=== PATIENT | female | born 1955 | race Caucasian/White ===

== ENCOUNTER 2020-06-13 09:53 | Day surgery (SDC) | payer BC, MEDICARE ==
[2020-06-10 14:02] VITALS: BMI 27.8
[2020-06-13] MEDS ORDERED: PROPOFOL 20 ML ONE ×2 (11:11)
[2020-06-13] MEDS ORDERED: Lidocaine 2% MPF 10 ML AMP (For Epidural Use) ONE (11:11)
[2020-06-13] MEDS ORDERED: PHENYLEPHRINE-NS 100 MCG/ML 10 ML SYRINGE ONE (12:22)
== END 2020-06-13 13:40 | disposition home or self-care (01) ==
LOC: CSHSDC 09:53
PROVIDERS: ATTEND Internal Medicine Gastroenterology
PROC: 0DJD8ZZ Inspection of Lower Intestinal Tract, Via Natural or Artificial Opening Endoscopic (ICD-10-PCS; principal; 2020-06-13)
DX: Z12.11 Encounter for screening for malignant neoplasm of colon (principal); K21.9 Gastro-esophageal reflux disease without esophagitis; K21.00 Gastro-esophageal reflux disease with esophagitis, without bleeding; K44.9 Diaphragmatic hernia without obstruction or gangrene; K22.10 Ulcer of esophagus without bleeding; K57.30 Diverticulosis of large intestine without perforation or abscess without bleeding; K64.9 Unspecified hemorrhoids
CPT/HCPCS: 88305; J2001; J2704

== ENCOUNTER 2021-07-25 12:13 | Outpatient (CLI) | payer MEDICARE, BC | END 2021-07-25 12:14 | disposition home or self-care (01) | LOC: CSHULT 12:13 | PROVIDERS: ATTEND Internal Medicine Rheumatology | DX: N18.32 Chronic kidney disease, stage 3b (principal); N27.1 Small kidney, bilateral | CPT/HCPCS: 76770 ==

== ENCOUNTER 2023-02-01 13:02 | Outpatient (CLI) | payer MEDICARE, BC | END 2023-02-01 13:03 | disposition home or self-care (01) | LOC: CSHLAB 13:02 | PROVIDERS: ATTEND Obstetrics & Gynecology | DX: Z01.818 Encounter for other preprocedural examination (principal); N87.9 Dysplasia of cervix uteri, unspecified | CPT/HCPCS: 80048; 85027; 86850; 86900; 86901; 93005; 93010 ==

== ENCOUNTER 2023-02-05 07:53 | Day surgery (SDC) | payer MEDICARE, BC ==
[2023-02-01 14:02] VITALS: BMI 24.4
[2023-02-01 14:38] LABS: Hematocrit 39.6 % (34.9-44.5); Hemoglobin 13.2 g/dL (12.0-15.5); Mean Corpuscular HGB CONC 33.3 g/dL (32.0-36.0); Mean Corpuscular Volume 102.1 fl (81.6-98.3); Platelet Count 303 10x3/uL (150-450); RBC Distribution Width 13.7 % (11.5-14.5); Red Blood Cell (RBC) Count 3.88 10x6/uL (3.90-5.03); White Blood Cell (WBC) Count 9.9 10x3/uL (3.5-10.5)
[2023-02-01 14:59] LABS: Anion Gap 18 mmol/L (10-20); BUN (Urea Nitrogen) 18 mg/dL (9.8-20.1); Calc. Creatinine Clearance 0 mL/min (70-130); Calcium 9.6 mg/dL (7.8-10.44); Carbon Dioxide 21 mmol/L (23-31); Chloride 109 mmol/L (98-107); Estimated GFR 52; Glucose 86 mg/dL (80-115); Potassium 3.6 mmol/L (3.5-5.1); Sodium 144 mmol/L (136-145)
[2023-02-05] MEDS ORDERED: Gabapentin 300 MG CAP ONE (08:02)
[2023-02-05] MEDS ORDERED: Famotidine/PF 20 mg/2ml Vial ONE (08:03)
[2023-02-05] MEDS ORDERED: CeleCOXIB 100 MG CAP ONE (08:04)
[2023-02-05] MEDS ORDERED: Bupivacaine PF 0.5% 30 ML VIAL ONE (09:08)
[2023-02-05] MEDS ORDERED: EPINEPHrine 1 MG/ML VIAL ONE (09:08)
[2023-02-05] MEDS ORDERED: Rocuronium Bromide 10 MG/ML (10ML VIAL) ONE (09:12)
[2023-02-05] MEDS ORDERED: Fentanyl 250 MCG/5 ML VIAL ONE (09:12)
[2023-02-05] MEDS ORDERED: Ondansetron PF 4 MG/2 ML Vial ONE (09:12)
[2023-02-05] MEDS ORDERED: Dexamethasone 20 MG/5 ML VIAL ONE (09:12)
[2023-02-05] MEDS ORDERED: Ketorolac Tromethamine 30 MG/ML VIAL ONE (09:12)
[2023-02-05] MEDS ORDERED: Midazolam HCl 2 mg/2 ml Vial ONE (09:12)
[2023-02-05] MEDS ORDERED: Lidocaine 1% PF 5 ML VIAL ONE (09:12)
[2023-02-05] MEDS ORDERED: PROPOFOL 20 ML ONE (09:12)
[2023-02-05] MEDS ORDERED: CEFAZOLIN 2 GM VIAL ONE (09:35)
[2023-02-05] MEDS ORDERED: Hydrocortisone Sod Succ/PF 100 mg/2 ml Vial ONE (10:27)
== END 2023-02-05 15:30 | disposition home or self-care (01) ==
LOC: CSHSDC 07:53
PROVIDERS: ATTEND Obstetrics & Gynecology
PROC: 0UT94ZZ Resection of Uterus, Percutaneous Endoscopic Approach (ICD-10-PCS; principal; 2023-02-05)
PROC: 0UB74ZZ Excision of Bilateral Fallopian Tubes, Percutaneous Endoscopic Approach (ICD-10-PCS; 2023-02-05)
PROC: 0UB24ZZ Excision of Bilateral Ovaries, Percutaneous Endoscopic Approach (ICD-10-PCS; 2023-02-05)
DX: N85.8 Other specified noninflammatory disorders of uterus (principal); N83.312 Acquired atrophy of left ovary; N83.311 Acquired atrophy of right ovary; N73.6 Female pelvic peritoneal adhesions (postinfective); R87.810 Cervical high risk human papillomavirus (HPV) DNA test positive; I11.0 Hypertensive heart disease with heart failure; I50.20 Unspecified systolic (congestive) heart failure; E78.5 Hyperlipidemia, unspecified; F17.210 Nicotine dependence, cigarettes, uncomplicated; Z87.410 Personal history of cervical dysplasia; Z90.49 Acquired absence of other specified parts of digestive tract; Z90.89 Acquired absence of other organs; Z79.899 Other long term (current) drug therapy
CPT/HCPCS: 58571; 80048; 85027; 86850; 86900; 86901; J0171; 36415; 88307; C1776; C1889; J1100; J1720; J1885; J2250; J2405; J2704; J3010; S0020; S0028

== ENCOUNTER 2023-08-14 13:59 | Outpatient (CLI) | payer MEDICARE, BC | END 2023-08-14 14:00 | disposition home or self-care (01) | LOC: CSHCT 13:59 | PROVIDERS: ATTEND Family Medicine | DX: Z12.2 Encounter for screening for malignant neoplasm of respiratory organs (principal); F17.210 Nicotine dependence, cigarettes, uncomplicated; K44.9 Diaphragmatic hernia without obstruction or gangrene | CPT/HCPCS: 71271 ==

== ENCOUNTER 2024-03-31 14:23 | Outpatient (CLI) | payer MEDICARE, BC | END 2024-03-31 14:24 | disposition home or self-care (01) | LOC: CSHRAD 14:23 | PROVIDERS: ATTEND Internal Medicine Rheumatology | DX: M47.817 Spondylosis without myelopathy or radiculopathy, lumbosacral region (principal); M81.0 Age-related osteoporosis without current pathological fracture | CPT/HCPCS: 72072; 72100 ==

== ENCOUNTER 2024-07-16 05:54 | Day surgery (SDC) | payer MEDICARE, BC ==
[2024-07-13 12:05] VITALS: BMI 17.6
[2024-07-16] MEDS ORDERED: Ketorolac Tromethamine 30 MG (1 mL) VIAL ONE (07:39)
[2024-07-16] MEDS ORDERED: Acetaminophen 500 MG TAB ONE (07:39)
[2024-07-16] MEDS ORDERED: Bupivacaine/Epinephrine 0.25% 30 ML VIAL ONE (07:54)
[2024-07-16] MEDS ORDERED: PROPOFOL 20 ML ONE (08:00)
[2024-07-16] MEDS ORDERED: CEFAZOLIN 1 GM VIAL ONE (08:08)
[2024-07-16] MEDS ORDERED: Fentanyl 100 MCG/2 ML VIAL ONE (08:21)
[2024-07-16] MEDS ORDERED: Dexamethasone 4 mg/ml Vial ONE (08:23)
[2024-07-16] MEDS ORDERED: Ondansetron PF 4 MG/2 ML Vial ONE (08:23)
[2024-07-16] MEDS ORDERED: Sevoflurane 250 ML INH ANEST BOTTLE ONE (08:44)
[2024-07-16] MEDS ORDERED: Lidocaine 2% PF 5 ML VIAL ONE (09:07)
== END 2024-07-16 10:15 | disposition home or self-care (01) ==
LOC: CSHSDC 05:54
PROVIDERS: ATTEND Specialist
PROC: 0JH60WZ Insertion of Totally Implantable Vascular Access Device into Chest Subcutaneous Tissue and Fascia, Open Approach (ICD-10-PCS; principal; 2024-07-16)
DX: C15.9 Malignant neoplasm of esophagus, unspecified (principal); I13.0 Hypertensive heart and chronic kidney disease with heart failure and stage 1 through stage 4 chronic kidney disease, or unspecified chronic kidney disease; I50.9 Heart failure, unspecified; N18.31 Chronic kidney disease, stage 3a; I47.10 Supraventricular tachycardia, unspecified; I26.99 Other pulmonary embolism without acute cor pulmonale; E78.2 Mixed hyperlipidemia; J44.9 Chronic obstructive pulmonary disease, unspecified; K21.9 Gastro-esophageal reflux disease without esophagitis; M81.0 Age-related osteoporosis without current pathological fracture; M06.9 Rheumatoid arthritis, unspecified; Z86.73 Personal history of transient ischemic attack (TIA), and cerebral infarction without residual deficits; Z87.891 Personal history of nicotine dependence; Z96.611 Presence of right artificial shoulder joint; Z87.59 Personal history of other complications of pregnancy, childbirth and the puerperium; Z90.710 Acquired absence of both cervix and uterus; Z90.49 Acquired absence of other specified parts of digestive tract; Z90.89 Acquired absence of other organs; Z98.890 Other specified postprocedural states; Z79.01 Long term (current) use of anticoagulants; Z79.82 Long term (current) use of aspirin; Z79.899 Other long term (current) drug therapy
CPT/HCPCS: 36561; 71045; J0690; J1100; J1642; J1885; J2405; J2704; J3010; C1788